=== PATIENT | female | born 1990 | race American Indian/Alaskan Native ===

== ENCOUNTER 2018-09-30 23:56 | Emergency (ER) | payer MEDICAID ==
--- NOTE | 2018-10-01 00:20 | Emergency Department Report ---
ED Psych HPI - General Chief Complaint: Psych Stated Complaint: ANXIETY/MH EVAL Time Seen by Provider: 10/01/18 00:18 Source: patient Mode of arrival: Ambulatory - History of Present Illness Initial Comments: Patient is a 28-year-old Female who was just here is a visitor with another patient and seemed to be 5 who is after her friends discharge signed in herself or mental health issues. The patient during the first interaction I had with her as a visitor of another patient is giggling and laughing now patient states that she is suicidal and is depressed. Patient has no plan at this time. - Related Data Home Medications Medication Instructions Recorded Confirmed Last Taken No Known Home Medications [No 10/01/18 10/01/18 Unknown Reported Home Medications] Allergies Allergy/AdvReac Type Severity Reaction Status Date / Time No Known Allergies Allergy Verified 10/01/18 00:01 ED Review of Systems ROS: Stated complaint: ANXIETY/MH EVAL Other details as noted in HPI Comment: All other systems reviewed and negative ED Past Medical Hx - Past Medical History Previous Medical History?: Yes Hx Diabetes: Yes Hx Psychiatric Treatment: Yes (Schizo affective. bipolar. depression) - Surgical History Past Surgical History?: No - Social History Smoking Status: Current Every Day Smoker Substance Use Type: None - Medications Home Medications: Home Medications Medication Instructions Recorded Confirmed Last Taken Type No Known Home Medications [No 10/01/18 10/01/18 Unknown History Reported Home Medications] ED Physical Exam - General Limitations: No Limitations General appearance: alert, in no apparent distress - Head Head exam: Present: atraumatic, normocephalic - Eye Eye exam: Present: normal appearance - ENT ENT exam: Present: mucous membranes moist - Neck Neck exam: Present: normal inspection - Respiratory Respiratory exam: Present: normal lung sounds bilaterally. Absent: respiratory distress, wheezes, rales, rhonchi - Cardiovascular Cardiovascular Exam: Present: regular rate, normal rhythm. Absent: systolic murmur, diastolic murmur, rubs, gallop - GI/Abdominal GI/Abdominal exam: Present: soft, normal bowel sounds. Absent: distended, tenderness, guarding, rebound, rigid - Extremities Exam Extremities exam: Present: normal inspection - Back Exam Back exam: Present: normal inspection - Neurological Exam Neurological exam: Present: alert, oriented X3 - Psychiatric Psychiatric exam: Present: normal affect, normal mood - Skin Skin exam: Present: warm, dry, intact, normal color. Absent: rash ED Course Vital Signs 09/30/18 23:59 Temperature 98.0 F Pulse Rate 83 Respiratory 18 Rate Blood Pressure 107/67 O2 Sat by Pulse 99 Oximetry ED Medical Decision Making - Lab Data Result diagrams: 10/01/18 00:13 10/01/18 00:13 Lab Results 10/01/18 10/01/18 10/01/18 Range/Units 00:13 00:13 00:13 WBC (4.5-11.0) K/mm3 RBC (3.65-5.03) M/mm3 Hgb (10.1-14.3) gm/dl Hct (30.3-42.9) % MCV (79-97) fl MCH (28-32) pg MCHC (30-34) % RDW (13.2-15.2) % Plt Count (140-440) K/mm3 Lymph % (Auto) (13.4-35.0) % [place] % (Auto) (0.0-7.3) % Eos % (Auto) (0.0-4.3) % Baso % (Auto) (0.0-1.8) % Lymph # (1.2-5.4) K/mm3 [place] # (0.0-0.8) K/mm3 Eos # (0.0-0.4) K/mm3 Baso # (0.0-0.1) K/mm3 Seg Neutrophils % (40.0-70.0) % Seg Neutrophils # (1.8-7.7) K/mm3 Sodium 135 L (137-145) mmol/L Potassium 3.7 (3.6-5.0) mmol/L Chloride 99.1 (98-107) mmol/L Carbon Dioxide 27 (22-30) mmol/L Anion Gap 13 mmol/L BUN 10 (7-17) mg/dL Creatinine 0.7 (0.7-1.2) mg/dL Estimated GFR > 60 ml/min BUN/Creatinine Ratio 14 % Glucose 92 (65-100) mg/dL Calcium 9.6 (8.4-10.2) mg/dL HCG, Qual (Negative) Urine Color (Yellow) Urine Turbidity (Clear) Urine pH (5.0-7.0) Ur Specific Higgins (1.003-1.030) Urine Protein (Negative) mg/dL Urine Glucose (UA) (Negative) mg/dL Urine Ketones (Negative) mg/dL Urine Blood (Negative) Urine Nitrite (Negative) Urine Bilirubin (Negative) Urine Urobilinogen (<2.0) mg/dL Ur Leukocyte Esterase (Negative) Urine WBC (Auto) (0.0-6.0) /HPF Urine RBC (Auto) (0.0-6.0) /HPF U Epithel Cells (Auto) (0-13.0) /HPF Hyaline Casts /LPF Urine Mucus /HPF Urine Opiates Screen Urine Methadone Screen Acetaminophen < 5.0 L (10.0-30.0) ug/mL Ur Barbiturates Screen Ur Phencyclidine Scrn Ur Amphetamines Screen U Benzodiazepines Scrn Urine Cocaine Screen U Marijuana (THC) Screen Drugs of Abuse Note Plasma/Serum Alcohol < 0.01 (0-0.07) % 10/01/18 10/01/18 10/01/18 Range/Units 00:13 00:13 00:16 WBC 8.5 (4.5-11.0) K/mm3 RBC 4.75 (3.65-5.03) M/mm3 Hgb 13.1 (10.1-14.3) gm/dl Hct 39.0 (30.3-42.9) % MCV 82 (79-97) fl MCH 28 (28-32) pg MCHC 34 (30-34) % RDW 13.4 (13.2-15.2) % Plt Count 281 (140-440) K/mm3 Lymph % (Auto) 41.2 H (13.4-35.0) % [place] % (Auto) 6.8 (0.0-7.3) % Eos % (Auto) 1.6 (0.0-4.3) % Baso % (Auto) 0.5 (0.0-1.8) % Lymph # 3.5 (1.2-5.4) K/mm3 Semin[place] # 0.6 (0.0-0.8) K/mm3 Eos # 0.1 (0.0-0.4) K/mm3 Baso # 0.0 (0.0-0.1) K/mm3 Seg Neutrophils % 49.9 (40.0-70.0) % Seg Neutrophils # 4.3 (1.8-7.7) K/mm3 Sodium (137-145) mmol/L Potassium (3.6-5.0) mmol/L Chloride (98-107) mmol/L Carbon Dioxide (22-30) mmol/L Anion Gap mmol/L BUN (7-17) mg/dL Creatinine (0.7-1.2) mg/dL Estimated GFR ml/min BUN/Creatinine Ratio % Glucose (65-100) mg/dL Calcium (8.4-10.2) mg/dL HCG, Qual Negative (Negative) Urine Color Yellow (Yellow) Urine Turbidity Clear (Clear) Urine pH 5.0 (5.0-7.0) Ur Specific Higgins 1.012 (1.003-1.030) Urine Protein <15 mg/dl (Negative) mg/dL Urine Glucose (UA) Neg (Negative) mg/dL Urine Ketones Neg (Negative) mg/dL Urine Blood Neg (Negative) Urine Nitrite Neg (Negative) Urine Bilirubin Neg (Negative) Urine Urobilinogen < 2.0 (<2.0) mg/dL Ur Leukocyte Esterase Lg (Negative) Urine WBC (Auto) 3.0 (0.0-6.0) /HPF Urine RBC (Auto) 4.0 (0.0-6.0) /HPF U Epithel Cells (Auto) 2.0 (0-13.0) /HPF Hyaline Casts 1 /LPF Urine Mucus Few /HPF Urine Opiates Screen Urine Methadone Screen Acetaminophen (10.0-30.0) ug/mL Ur Barbiturates Screen Ur Phencyclidine Scrn Ur Amphetamines Screen U Benzodiazepines Scrn Urine Cocaine Screen U Marijuana (THC) Screen Drugs of Abuse Note Plasma/Serum Alcohol (0-0.07) % 10/01/18 Range/Units 00:16 WBC (4.5-11.0) K/mm3 RBC (3.65-5.03) M/mm3 Hgb (10.1-14.3) gm/dl Hct (30.3-42.9) % MCV (79-97) fl MCH (28-32) pg MCHC (30-34) % RDW (13.2-15.2) % Plt Count (140-440) K/mm3 Lymph % (Auto) (13.4-35.0) % [place] % (Auto) (0.0-7.3) % Eos % (Auto) (0.0-4.3) % Baso % (Auto) (0.0-1.8) % Lymph # (1.2-5.4) K/mm3 [place] # (0.0-0.8) K/mm3 Eos # (0.0-0.4) K/mm3 Baso # (0.0-0.1) K/mm3 Seg Neutrophils % (40.0-70.0) % Seg Neutrophils # (1.8-7.7) K/mm3 Sodium (137-145) mmol/L Potassium (3.6-5.0) mmol/L Chloride (98-107) mmol/L Carbon Dioxide (22-30) mmol/L Anion Gap mmol/L BUN (7-17) mg/dL Creatinine (0.7-1.2) mg/dL Estimated GFR ml/min BUN/Creatinine Ratio % Glucose (65-100) mg/dL Calcium (8.4-10.2) mg/dL HCG, Qual (Negative) Urine Color (Yellow) Urine Turbidity (Clear) Urine pH (5.0-7.0) Ur Specific Higgins (1.003-1.030) Urine Protein (Negative) mg/dL Urine Glucose (UA) (Negative) mg/dL Urine Ketones (Negative) mg/dL Urine Blood (Negative) Urine Nitrite (Negative) Urine Bilirubin (Negative) Urine Urobilinogen (<2.0) mg/dL Ur Leukocyte Esterase (Negative) Urine WBC (Auto) (0.0-6.0) /HPF Urine RBC (Auto) (0.0-6.0) /HPF U Epithel Cells (Auto) (0-13.0) /HPF Hyaline Casts /LPF Urine Mucus /HPF Urine Opiates Screen Presumptive negative Urine Methadone Screen Presumptive negative Acetaminophen (10.0-30.0) ug/mL Ur Barbiturates Screen Presumptive negative Ur Phencyclidine Scrn Presumptive negative Ur Amphetamines Screen Presumptive negative U Benzodiazepines Scrn Presumptive negative Urine Cocaine Screen Presumptive negative U Marijuana (THC) Screen Presumptive negative Drugs of Abuse Note Disclamer Plasma/Serum Alcohol (0-0.07) % - Medical Decision Making Patient was stated to me that she was suicidal however when our mental health professionals. The patient she states she does not want to kill herself. When pressed she does admit that she did tell me that she was extremely suicidal. Patient then states "he can't believe everybody says". Patient also started talking about being telepathic. Patient be placed on 1013 for inappropriate behavior and possible suicidality. Critical care attestation.: If time is entered above; I have spent that time in minutes in the direct care of this critically ill patient, excluding procedure time. ED Disposition Clinical Impression: Encounter for screening examination for mental health and behavioral disorders Disposition: DC/TX-65 PSY HOSP/PSY UNIT Is pt being admited?: No Does the pt Need Aspirin: No Condition: Stable Time of Disposition: 03:04
[2018-10-01 00:53] LABS: Bilirubin,Urine NEG (Negative); Blood,Urine NEG (Negative); Color,Urine Yellow (Yellow); Hyaline Casts,Urine 1 /LPF; Mucus,Urine FEW /HPF; Protein,Urine <15 mg/dL mg/dL (Negative); Urobilinogen,Urine < 2.0 mg/dL (<2.0)
[2018-10-01 00:56] LABS: Basophils % (Auto) 0.5 % (0.0-1.8); Eosinophils # (Auto) 0.1 K/mm3 (0.0-0.4); Eosinophils % (Auto) 1.6 % (0.0-4.3); Hemoglobin 13.1 gm/dl (10.1-14.3); Lymphocytes # (Auto) 3.5 K/mm3 (1.2-5.4); Lymphocytes % (Auto) 41.2 % (13.4-35.0); Mean Corpuscular HGB Conc 34 % (30-34); Mean Corpuscular Volume 82 fl (79-97); Monocytes # (Auto) 0.6 K/mm3 (0.0-0.8); Monocytes % (Auto) 6.8 % (0.0-7.3); Platelet Count 281 K/mm3 (140-440); Red Blood Count 4.75 M/mm3 (3.65-5.03); Red Cell Distribution Width 13.4 % (13.2-15.2)
[2018-10-01 01:00] LABS: Amphetamine Screen,Urine PRESUMPTIVE NEGATIVE; Benzodiazepines Screen,Urine PRESUMPTIVE NEGATIVE; Cannabinoid Screen,Urine PRESUMPTIVE NEGATIVE; Cocaine Screen,Urine PRESUMPTIVE NEGATIVE; Methadone Screen,Urine PRESUMPTIVE NEGATIVE; Opiate Screen,Urine PRESUMPTIVE NEGATIVE
[2018-10-01 01:29] LABS: BUN/Creatinine Ratio 14; Blood Urea Nitrogen 10 mg/dL (7-17); Calcium 9.6 mg/dL (8.4-10.2); Hemolysis Index 7
--- NOTE | 2018-10-01 11:03 | Consultation ---
History of Present Illness - Reason for Consult Consult date: 10/01/18 Reason for consult: Mental Health Evaluation Requesting physician: GRAY VILLALOBOS - Chief Complaint Chief complaint: "I have things on my mind" - History of Present Psychiatric Illness 28-year-old AA female who was accompanying a patient and decided to sign in to be seen by the ER staff. Today the patient is calm, but paranoid during the assessment. She stated that she have been feeling a "certain way" lately. 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 She stated that she has "telepathic tan" with the ability to move things. She stated that her "power are strong." She was asked about her mental health, she sated that she was a patient at [facility] on the "13th floor." She stated that she took Risperdal in the past. Throughout the interview, the patient would pause before answering questions, possibly responding to some type of stimuli. She denies SI/HI's and VH's. She would not confirm or deny AH's. She denies a poor appetite and alcohol consumption (etoh). She stated that she smoke synthetic marijuana often. Medications and Allergies Allergies Allergy/AdvReac Type Severity Reaction Status Date / Time No Known Allergies Allergy Verified 10/01/18 00:01 Home Medications Medication Instructions Recorded Confirmed Last Taken Type No Known Home Medications [No 10/01/18 10/01/18 Unknown History Reported Home Medications] Past psychiatric history - Past Medical History Past Medical History: No medical history Past Surgical History: No surgical history - past Psychiatric treatment and history psychiatric treatment history: A previous suicide attempt in the past. Denies a fam psy hx. - Social History Social history: lives with family Mental Status Exam - Vital signs Last Vital Signs Temp 99.0 F 10/01/18 07:30 Pulse 85 10/01/18 07:30 Resp 18 10/01/18 07:30 BP 108/74 10/01/18 07:30 Pulse Ox 98 10/01/18 07:30 - Exam Narrative exam: MSE: Appearance: calm, cooperative Behavior: regular eye contact Speech: regular rate and tone Mood: preoccupied Affect: congruent to mood Thought Process: circumstantial Thought Content: denies SI/HI's with VH's, delusional, paranoid Motor Activity: ambulatory Cognition: A/Ox 3 Insight: poor Judgment: poor + Results Result Diagrams: 10/01/18 00:13 10/01/18 00:13 Abnormal lab results 10/01/18 10/01/18 10/01/18 Range/Units 00:13 00:13 00:13 Lymph % (Auto) (13.4-35.0) % Sodium 135 L (137-145) mmol/L Salicylates < 0.3 L (2.8-20.0) mg/dL Acetaminophen < 5.0 L (10.0-30.0) ug/mL 10/01/18 Range/Units 00:13 Lymph % (Auto) 41.2 H (13.4-35.0) % Sodium (137-145) mmol/L Salicylates (2.8-20.0) mg/dL Acetaminophen (10.0-30.0) ug/mL All other labs normal. Assessment and Plan Assessment and plan: Impression:Unspecified Psychosis. Today the patient is calm, but paranoid during the assessment. DDx: Bipolar DO, Substance Induced Psychosis Recommendation/Plan: Continue 1013 and start Risperdal 1 mg PO HS for psychosis. Discussed possible metabolic side effects of Risperdal with the patient. Dipso: The patient was referred to inpatient psy services. Staffed with Dr Tee Carrasco.
[2018-10-02 13:11] VITALS: BP 103/53
== END 2018-10-02 16:00 ==
LOC: EEVIPCON 23:56 → ED 23:56
DX: F25.9 Schizoaffective disorder, unspecified (principal); E11.9 Type 2 diabetes mellitus without complications; F17.200 Nicotine dependence, unspecified, uncomplicated; F31.9 Bipolar disorder, unspecified
CPT/HCPCS: 36415; 80048; 80307; 81001; 84703; 85025; 99285; G0480; 80320

== ENCOUNTER 2019-04-11 18:39 | Emergency (ER) | payer MEDICAID ==
[2019-04-11 19:43] LABS: BUN/Creatinine Ratio 19; Blood Urea Nitrogen 15 mg/dL (7-17); Calcium 9.5 mg/dL (8.4-10.2); Hemolysis Index 5
[2019-04-11 19:44] LABS: Basophils % (Auto) 0.4 % (0.0-1.8); Eosinophils % (Auto) 0.1 % (0.0-4.3); Hematocrit 36.2 % (30.3-42.9); Hemoglobin 12.2 gm/dl (10.1-14.3); Lymphocytes # (Auto) 1.6 K/mm3 (1.2-5.4); Lymphocytes % (Auto) 13.7 % (13.4-35.0); Mean Corpuscular HGB Conc 34 % (30-34); Mean Corpuscular Volume 82 fl (79-97); Monocytes # (Auto) 0.7 K/mm3 (0.0-0.8); Monocytes % (Auto) 6.3 % (0.0-7.3); Platelet Count 226 K/mm3 (140-440); Red Blood Count 4.42 M/mm3 (3.65-5.03); Red Cell Distribution Width 13.3 % (13.2-15.2)
[2019-04-11 20:16] LABS: Alanine Aminotransferase 12 units/L (7-56); Albumin 4.3 g/dL (3.9-5)
[2019-04-11 20:17] LABS: Bilirubin,Direct < 0.2 mg/dL (0-0.2)
[2019-04-11 23:18] LABS: Bilirubin,Urine NEG (Negative); Blood,Urine NEG (Negative); Color,Urine Yellow (Yellow); Mucus,Urine FEW /HPF; Protein,Urine <15 mg/dL mg/dL (Negative); Urobilinogen,Urine < 2.0 mg/dL (<2.0)
[2019-04-11 23:27] LABS: Amphetamine Screen,Urine PRESUMPTIVE NEGATIVE; Benzodiazepines Screen,Urine PRESUMPTIVE NEGATIVE; Cannabinoid Screen,Urine PRESUMPTIVE NEGATIVE; Cocaine Screen,Urine PRESUMPTIVE NEGATIVE; Methadone Screen,Urine PRESUMPTIVE NEGATIVE; Opiate Screen,Urine PRESUMPTIVE NEGATIVE
--- NOTE | 2019-04-12 00:53 | Emergency Department Report ---
ED Psych HPI - General Chief Complaint: Psych Stated Complaint: DEYVIRENAE Source: patient, EMS Mode of arrival: Ambulatory - History of Present Illness Initial Comments: Per EMS, patient is a 28-year-old -[place] female with a history of chronic paranoid schizophrenia, bipolar disorder and major depression and anxiety presented to the ED with suicidal ideation and hallucinations stating that she is hearing voices and also seeing other people telling her to kill her self. Per EMS, patient is noncompliant with medications and has had these symptoms for the last 2 days, worse in the last 6 hours. Per EMS, patient has not had any nausea, vomiting, chest pain, shortness of breath, change in vision, syncope, dizziness, headache, abdominal pain, homicidal ideation or suicidal attempt. MD Complaint: suicidal ideation, feels depressed, other (hallucinations) -: Sudden, hour(s) (12) Associated Psychiatric Symptoms: depression, suicidal ideation, racing thoughts, auditory hallucinations, visual hallucinations, delusions History of same: Yes Quality: constant Improves With: none Worsens With: none Context: not taking psychiatric Associated Symptoms: denies other symptoms, insomnia. denies: shortness of breath, nausea, vomiting Treatments Prior to Arrival: none If Self Harm: admits thoughts of, has plan - Related Data Home Medications Medication Instructions Recorded Confirmed Last Taken diphenhydrAMINE [Benadryl CAP] 25 mg PO HS 06/08/19 06/08/19 06/07/19 21:00 risperiDONE [RisperDAL] 1 mg PO BID 06/08/19 06/08/19 06/07/19 21:00 Allergies Allergy/AdvReac Type Severity Reaction Status Date / Time No Known Allergies Allergy Verified 10/01/18 00:01 ED Review of Systems ROS: Stated complaint: EVAL Other details as noted in HPI Constitutional: denies: chills, fever Eyes: denies: eye pain, eye discharge, vision change ENT: denies: ear pain, throat pain Respiratory: denies: cough, shortness of breath, wheezing Cardiovascular: denies: chest pain, palpitations Endocrine: no symptoms reported Gastrointestinal: denies: abdominal pain, nausea, diarrhea Genitourinary: denies: urgency, dysuria, discharge Musculoskeletal: denies: back pain, joint swelling, arthralgia Skin: denies: rash, lesions Neurological: denies: headache, weakness, paresthesias Psychiatric: anxiety, depression, auditory hallucinations, visual hallucinations, suicidal thoughts Hematological/Lymphatic: denies: easy bleeding, easy bruising ED Past Medical Hx - Past Medical History Hx Diabetes: Yes Hx Psychiatric Treatment: Yes (Schizo affective. bipolar. depression) - Social History Smoking Status: Current Every Day Smoker Substance Use Type: Alcohol - Medications Home Medications: Home Medications Medication Instructions Recorded Confirmed Last Taken Type diphenhydrAMINE [Benadryl CAP] 25 mg PO HS 06/08/19 06/08/19 06/07/19 21:00 History risperiDONE [RisperDAL] 1 mg PO BID 06/08/19 06/08/19 06/07/19 21:00 History ED Physical Exam - General Limitations: Altered Mental Status General appearance: alert, in no apparent distress - Head Head exam: Present: atraumatic, normocephalic, normal inspection - Eye Eye exam: Present: normal appearance, PERRL, EOMI Pupils: Present: normal accommodation - ENT ENT exam: Present: normal exam, normal orophraynx, mucous membranes moist, TM's normal bilaterally, normal external ear exam - Neck Neck exam: Present: normal inspection, full ROM - Respiratory Respiratory exam: Present: normal lung sounds bilaterally. Absent: respiratory distress, wheezes, rales, stridor, chest wall tenderness, accessory muscle use, prolonged expiratory - Cardiovascular Cardiovascular Exam: Present: regular rate, normal rhythm. Absent: systolic murmur, diastolic murmur, rubs, gallop - GI/Abdominal GI/Abdominal exam: Present: soft, normal bowel sounds. Absent: tenderness, hyperactive bowel sounds, organomegaly - Extremities Exam Extremities exam: Present: normal inspection, full ROM, normal capillary refill - Back Exam Back exam: Present: normal inspection - Neurological Exam Neurological exam: Present: alert, oriented X3, CN II-XII intact, normal gait, reflexes normal - Psychiatric Psychiatric exam: Present: depressed, anxious, manic, suicidal ideation - Skin Skin exam: Present: warm, dry, intact, normal color. Absent: rash ED Course Vital Signs 04/11/19 04/11/19 04/12/19 19:17 21:52 03:29 Temperature 98.2 F 98.7 F 97.9 F Pulse Rate 78 93 H 82 Respiratory 16 18 18 Rate Blood Pressure 116/71 102/63 111/58 [Left] O2 Sat by Pulse 99 98 100 Oximetry 04/12/19 04/12/19 04/12/19 08:25 13:00 20:00 Temperature 97.9 F 98.3 F 97.9 F Pulse Rate 64 71 74 Respiratory 16 18 18 Rate Blood Pressure 93/55 108/66 94/52 [Left] O2 Sat by Pulse 97 96 97 Oximetry 04/13/19 04/13/19 04/13/19 01:36 07:00 13:00 Temperature 97 F L 97.5 F L 97.8 F Pulse Rate 64 59 L 73 Respiratory 18 18 18 Rate Blood Pressure 127/72 108/58 101/64 [Left] O2 Sat by Pulse 100 97 99 Oximetry - Reevaluation(s) Reevaluation #1: 04/12/19 02:27 This is a 28-year-old -[place] female with a history of chronic paranoid schizophrenia, bipolar disorder and depression presented to the ED for evaluation after she developed suicidal ideations, worsening auditory and visual hallucinations and worsening agitation. In the ED, patient is alert and oriented 3, actively having suicidal ideation with auditory hallucinations stating that her mother is present in the room and talking to her. Patient is otherwise unresponsive and attentive during the physical exam and responds to questions appropriately. Lab test results were reviewed and show acute leukocytosis of 11,800. Rest of the lab test results are nonactionable. Patient was medically cleared, awaiting mental health evaluation before final disposition. Medial the patient was placed on 1013 for her safety. ED Medical Decision Making - Lab Data Result diagrams: 04/11/19 18:58 04/11/19 18:58 - Medical Decision Making This is a 28-year-old -[place] female with a history of chronic paranoid schizophrenia, bipolar disorder and depression presented to the ED for evaluation after she developed suicidal ideations, worsening auditory and visual hallucinations and worsening agitation. In the ED, patient is alert and oriented 3, actively having suicidal ideation with auditory hallucinations stating that her mother is present in the room and talking to her. Patient is otherwise unresponsive and attentive during the physical exam and responds to questions appropriately. Lab test results were reviewed and show acute leukocytosis of 11,800. Rest of the lab test results are nonactionable. Patient was medically cleared, awaiting mental health evaluation before final disposition. Medial the patient was placed on 1013 for her safety. - Differential Diagnosis Paranoid schizophrenia; SI; Bipolar manic episode; chronic depression Critical care attestation.: If time is entered above; I have spent that time in minutes in the direct care of this critically ill patient, excluding procedure time. ED Disposition Clinical Impression: Suicidal ideations, Paranoid type schizophrenia, Major depression with psychotic features Disposition: DC/TX-65 PSY HOSP/PSY UNIT Is pt being admited?: No Does the pt Need Aspirin: No Condition: Stable Referrals: ABUNDIO SERNA MD [Primary Care Provider] - 3-5 Days
--- NOTE | 2019-04-12 10:14 | Consultation ---
History of Present Illness - Reason for Consult Consult date: 04/12/19 Reason for consult: Mental Health Evaluation Requesting physician: ALPHONSO BARCENAS - Chief Complaint Chief complaint: "You know why I'm here" - History of Present Psychiatric Illness 28 y.o. AA female who presented to the ER for bizarre behavior. This patient is known to me. Today the patient was tangent during the assessment. Most of her answers to questions were not logical. She stated, "I'm here because I suppose to be here." She could not elaborate more about her statement when asked. She had to be redirected several time to keep her on topic. She denies SI/HI's and VH's. She would not confirm or deny AH's. Also, the patient appear to be responding to some type of stimuli. Overall, the patient is a poor historian at this time. Medications and Allergies Allergies Allergy/AdvReac Type Severity Reaction Status Date / Time No Known Allergies Allergy Verified 10/01/18 00:01 Home Medications Medication Instructions Recorded Confirmed Last Taken Type No Known Home Medications [No 10/01/18 04/11/19 Unknown History Reported Home Medications] Past psychiatric history - Past Medical History Past Medical History: No medical history Past Surgical History: No surgical history - past Psychiatric treatment and history psychiatric treatment history: Several inpatient psy settings. [facility] - Social History Social history: other (Unable to obtain ) Mental Status Exam - Vital signs Last Vital Signs Temp 97.9 F 04/12/19 08:25 Pulse 64 04/12/19 08:25 Resp 16 04/12/19 08:25 BP 93/55 04/12/19 08:25 Pulse Ox 97 04/12/19 08:25 - Exam Narrative exam: MSE: Appearance: in hospital attire Behavior: regular eye contact Speech: regular rate and tone Mood: irritable Affect: congruent to mood Thought Process: disorganized, tangential Thought Content: denies SI/HI's with VH's Motor Activity: ambulatory Cognition: A/Ox 3 Insight: poor Judgment: poor + Results Result Diagrams: 04/11/19 18:58 04/11/19 18:58 Abnormal lab results 04/11/19 04/11/19 04/11/19 Range/Units 18:58 18:58 18:58 WBC (4.5-11.0) K/mm3 Seg Neutrophils % (40.0-70.0) % Seg Neutrophils # (1.8-7.7) K/mm3 Carbon Dioxide 21 L (22-30) mmol/L Glucose 104 H (65-100) mg/dL Salicylates < 0.3 L (2.8-20.0) mg/dL Acetaminophen < 5.0 L (10.0-30.0) ug/mL 04/11/19 Range/Units 18:58 WBC 11.8 H (4.5-11.0) K/mm3 Seg Neutrophils % 79.5 H (40.0-70.0) % Seg Neutrophils # 9.4 H (1.8-7.7) K/mm3 Carbon Dioxide (22-30) mmol/L Glucose (65-100) mg/dL Salicylates (2.8-20.0) mg/dL Acetaminophen (10.0-30.0) ug/mL All other labs normal. Assessment and Plan Assessment and plan: Impression:Unspecified Psychosis. Today the patient was tangent during the assessment. DDx: Bipolar DO with psychosis, R/O Schizophrenia Recommendation/Plan: Continue 1013 and start Risperdal 1 mg PO HS for psychosis once her HCg is confirmed to be negative. Attempted to discuss possible metabolic side effects of Risperdal with the patient. Dipso: The patient was referred to inpatient psy services. Staffed with Dr Tee Carrasco.
[2019-04-12] MEDS ORDERED: ZIPRASIDONE MESYLATE 20 MG VIAL IM ONE (14:48)
[2019-04-12] MEDS ORDERED: WATER FOR INJ Sterile (PF) 10 ML ONE (14:52)
[2019-04-13 06:56] LABS: Chol/HDL Ratio 3.24 %
--- NOTE | 2019-04-13 08:52 | Progress Note ---
Subjective - Reason for Consult Consult date: 04/13/19 Reason for consult: Psychiatry Follow-up - Chief Complaint Chief complaint: "I need to leave" 28 y.o. AA female who presented to the ER for bizarre behavior. This patient is known to me. Today the patient was still tangent during the assessment. She had to be redirected several times to keep her on topic. Per the record, the patient was given a PRN medication for agitation. She denies SI/HI's and VH's. She stated that she's hearing "lots of voices." She would not state what the voices are telling her. Mental Status Exam - Vital signs Last Vital Signs Temp 97.5 F L 04/13/19 07:00 Pulse 59 L 04/13/19 07:00 Resp 18 04/13/19 07:00 BP 108/58 04/13/19 07:00 Pulse Ox 97 04/13/19 07:00 - Exam Narrative exam: MSE: Appearance: disheveled Behavior: regular eye contact Speech: regular rate and loud tone Mood: "okay" Affect: congruent to mood Thought Process: disorganized, tangential Thought Content: denies SI/HI's with VH's Motor Activity: ambulatory Cognition: A/Ox 3 Insight: poor Judgment: poor + Assessment and Plan Impression: Unspecified Psychosis. Today the patient was still tangent during the assessment. DDx: Bipolar DO with psychosis, R/O Schizophrenia Recommendation/Plan: Continue 1013 and Risperdal 1 mg PO HS for psychosis for psychosis. Attempted to discuss possible metabolic side effects of Risperdal with the patient. Dipso: The patient was referred to inpatient psy services. Will staff with Dr Tee Carrasco.
[2019-04-13] MEDS ORDERED: ZIPRASIDONE MESYLATE 20 MG VIAL IM PRN (13:30)
[2019-04-13 13:47] VITALS: BP 101/64
[2019-04-13] MEDS ORDERED: WATER FOR INJ Sterile (PF) 10 ML ONE (14:16)
[2019-04-13] MEDS ORDERED: risperiDONE 1 MG TAB PO SCH (22:00)
== END 2019-04-13 15:45 ==
LOC: EEVIPCON 18:39 → ED 18:39
DX: F20.0 Paranoid schizophrenia (principal); R45.851 Suicidal ideations; F32.9 Major depressive disorder, single episode, unspecified; E11.9 Type 2 diabetes mellitus without complications; F31.9 Bipolar disorder, unspecified; F17.200 Nicotine dependence, unspecified, uncomplicated
CPT/HCPCS: 36415; 80048; 80061; 80076; 80307; 81001; 83036; 84703; 85025; 96372; 99285; J3486; 80320; G0480

== ENCOUNTER 2019-06-08 07:03 | Emergency (ER) | payer MEDICAID ==
[2019-06-08 11:47] LABS: Basophils % (Auto) 0.6 % (0.0-1.8); Eosinophils % (Auto) 0.4 % (0.0-4.3); Hematocrit 35.6 % (30.3-42.9); Hemoglobin 11.5 gm/dl (10.1-14.3); Lymphocytes # (Auto) 2.8 K/mm3 (1.2-5.4); Lymphocytes % (Auto) 39.8 % (13.4-35.0); Mean Corpuscular HGB Conc 32 % (30-34); Mean Corpuscular Volume 83 fl (79-97); Monocytes # (Auto) 0.4 K/mm3 (0.0-0.8); Monocytes % (Auto) 5.9 % (0.0-7.3); Platelet Count 227 K/mm3 (140-440); Red Blood Count 4.28 M/mm3 (3.65-5.03); Red Cell Distribution Width 13.7 % (13.2-15.2)
[2019-06-08 12:04] LABS: BUN/Creatinine Ratio 15; Blood Urea Nitrogen 9 mg/dL (7-17); Calcium 9.4 mg/dL (8.4-10.2); Hemolysis Index 5
[2019-06-08 13:03] LABS: Bilirubin,Urine NEG (Negative); Blood,Urine NEG (Negative); Color,Urine Yellow (Yellow); Mucus,Urine 1+ /HPF; Protein,Urine <15 mg/dL mg/dL (Negative)
[2019-06-08 13:11] LABS: Amphetamine Screen,Urine PRESUMPTIVE NEGATIVE; Benzodiazepines Screen,Urine PRESUMPTIVE NEGATIVE; Cannabinoid Screen,Urine PRESUMPTIVE NEGATIVE; Cocaine Screen,Urine PRESUMPTIVE NEGATIVE; Methadone Screen,Urine PRESUMPTIVE NEGATIVE; Opiate Screen,Urine PRESUMPTIVE NEGATIVE
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
[2019-06-08] MEDS ORDERED: diphenhydrAMINE 25 MG CAP PO SCH (22:00)
[2019-06-08] MEDS: risperiDONE 1 MG TAB PO SCH (22:21)
[2019-06-09 08:26] VITALS: BP 123/66
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
[2019-06-09] MEDS: risperiDONE 1 MG TAB PO SCH (10:09)
== END 2019-06-09 12:52 | disposition home or self-care (01) ==
LOC: ED 07:03
DX: F41.9 Anxiety disorder, unspecified (principal); E11.9 Type 2 diabetes mellitus without complications; F25.0 Schizoaffective disorder, bipolar type; F32.9 Major depressive disorder, single episode, unspecified; Z91.14 Patient's other noncompliance with medication regimen; Z79.899 Other long term (current) drug therapy
CPT/HCPCS: 36415; 80048; 80307; 80320; 81001; 84703; 85025; G0480